=== PATIENT | female | born 1960 | race Caucasian/White ===

== ENCOUNTER 2017-01-14 07:44 | Day surgery (SDC) | payer OTHER ==
[~2017-01-14] VITALS: Ht 162.6 cm; Wt 84.4 kg
[~2017-01-14 07:44] MED LIST: CALC-72 PO; CHOL500050 PO; CYCL5TAB PO; CeFAZolin Inj 2 GM in IV Premix 1 EACH IV ONE; KETACONAZOLE CREAM TP; LEVO50TA6 PO; Lactated Ringer's 1,000 ML IV SCH; NPR500T PO
[2017-01-14] MEDS ORDERED: Ketamine 10 mg/mL 20 mL Inj ONE (07:45)
[2017-01-14] MEDS ORDERED: Lactated Ringer's 1,000 ML IV ONE (08:18)
[2017-01-14 08:27] VITALS: BP 105/57; PULSE 52; RESP 17; O2SAT 98
--- NOTE | 2017-01-14 10:50 | PCM.HPANE ---
Patient Data Surgeon Admitting Provider: Attending Provider:Raffi Olivarez MD Primary Care Physician:Angela Fountain MD Other Provider:Tricia Braggingham Anesthesia Reason for Visit Left Middle Finger Cyst Ht/WT & BMI Height (Feet): 5 Height (Inches): 4.00 Weight (Kilograms): 84.368 Body Mass Index 31.00 Allergies Coded Allergies: aspirin (Verified Adverse Reaction, Severe, VOMITING, 01/13/17) Past Anesthesia History Anesthesia History: Denies:: Anesthesia Reactions, Malignant Hyperthermia Diabetes History Hx Diabetes?: No MRSA MRSA: No (HAS BEEN EXPOSED, BUT TESTED NEG.) Medications Home Meds Incl Beta Jaye: No Reported Medications Cholecalciferol (Vitamin D3) (Vitamin D3)50,000 Unit [id number],000 Unit PO WEEKLY 01/13/17 Naproxen 500 Mg [id number] Mg PO BID PRN For Pain Ref 0 01/13/17 Levothyroxine 50 Mcg [id number] Mcg PO DAILY Ref 0 01/13/17 [Ketaconazole Cream] No Conflict Check1 Applic TP PRN 2% 01/13/17 Calcium Carbonate/Vitamin D3 (Calcium 500 + Vit D 200 Tablet)1 Each Tablet1 Each PO DAILY 01/13/17 Discontinued Reported Medications Cyclobenzaprine 5 Mg Tablet5 Mg PO TID PRN Spasm 01/13/17 IBUPROFEN-Expunged Drug, Do Not Renew! 200 Mg [id number] Mg PO PRN INSTRUCTED TO STOP 05/19/12 History History of ENT Problems?: Yes HEENT History: Positive for:: Sinus Problem (POST-NASAL DRIP) Hx of Heart Problems?: Yes Cardiovascular History: Positive for:: Heart Murmur (ECHO 05/2013 EF 55-60%) Hypertension (HYPERLIPIDEMIA) Hx of Respiratory Problem?: No Respiratory History: Denies:: Use of C-PAP Machine Hx Neurologic Problems?: Yes Neurological History: Positive for:: Headaches Hx of GI Problems?: No Hx of Problems?: No Female Hx: Denies:: Currently (S/P BTL) Skin History: Denies:: History Skin Disorders? Pressure Ulcers Hx Musculoskeletal Problems?: Yes Musculoskeletal History: Positive for:: Musculoskeletal Trauma (S/P RT FOOT GASTRICNEMIUS EQUINUS RPR) Osteoarthritis (LT HIP PAIN,ELBOW PAIN) Denies:: Back Injury (C/OF LOWER BACK PAIN) Hx of Psycho/Social Problems?: No Hx Surgeries?: Yes (BTL,RT FOOT GASTROCNEMIUS EQUINUS RPR) Hx Any Other Health Problems?: Yes Other History: Denies:: Cancer Endocrine Disease Hospitalization Thyroid Disease History Blood Transfusions: Denies:: Blood Transfusions Hx Diabetes: No Hx Alcohol Use: NoHx Substance Use: NoHave You Smoked inLast 12 mo: No Stop/Bang Treated for Sleep Apnea?: No Do You Have a CPAP Machine?: No S-Snoring: Do You Snore Loudly: No T-Tired: feel tired, fatigued: Yes O-Obsered: Observed not breath: No P-Blood Pressure: treated: No B- Body Mass Index > 35 kg/m2: No A- Age over 50: Yes N- Neck Large Circumference: No G- Gender Male: No ANGELICA Total Score: 2 ANGELICA Risk Assessment: Low Risk, <3 Yes Risk Assessment Category Category 1A: Patient has history of documented sleep apnea, and HAS NOT received any narcotic, sedative or anesthesia administration during this stay. Category 1B: Patient has history of documented sleep apnea, and HAS received any narcotic , sedative or anesthesia administration during this stay Category 2: Patient has SUSPECTED Obstructive Sleep Apnea, and HAS received any narcotic , sedative or anesthesia administration during this stay. Category 3: Patient has SUSPECTED Obstructive Sleep Apnea and HAS NOT received narcotic, sedative or anesthesia administration during this stay. Category 4: Outpatient in Procedural Areas with known sleep apnea or who screen positive for High Risk via the STOP/BANG questionnaire. Exam Exam Vital Signs Vital Signs Date Time Temp Pulse Resp B/P Pulse Ox O2 Delivery O2 Flow Rate FiO2 01/14/17 08:27 36.1 52 17 105/57 98 Room Air General Appearance: Oriented X3 HEENT/AIRWAY: MP 2 Lungs: Normal Air Movement Heart: Regular Rate/Rhythm Meds/Labs/Diagnostics Admission Meds Current Medications Lactated Ringer's (Lr) 1,000 ml @ ud STK-MED ONCE IV Last administered on t 08:18; Start 01/14/17 at 08:18; Stop 01/14/17 at 08:27; Status DC Plan Impression Patient chart reviewed, patient interviewed and anesthestic plan with risks, benefits, and alternatives discussed, and informed consent obtained. NPO Status: 01/13@2100 ASA Physical Status: ASA2 Mod Systemic Disease Anesthetic Plan: MAC Bene/Risks/Altern/Consents: Yes HP Complete Prior to Induction: Yes Chalino Eckert MD Jan 14, 2017 10:50
[2017-01-14] MEDS ORDERED: Phenylephrine 10,000 mCg/mL Inj IVPUSH PRN (11:55)
[2017-01-14] MEDS ORDERED: Dexamethasone 4 mg/mL Inj IVPUSH PRN (11:55)
[2017-01-14] MEDS ORDERED: fentaNYL-PF 50 mCg/mL 2 mL Inj IVPUSH PRN (11:55)
[2017-01-14] MEDS ORDERED: Ondansetron 2 mg/mL 2 mL Inj IVPUSH PRN (11:55)
[2017-01-14] MEDS ORDERED: EPHEDrine Sulfate 50 mg/mL Inj IVPUSH PRN (11:55)
[2017-01-14] MEDS ORDERED: HYDROmorphone 1 mg/mL Inj IVPUSH PRN (11:55)
[2017-01-14] MEDS ORDERED: Lactated Ringer's 1,000 ML IV SCH (11:55)
[2017-01-14] MEDS ORDERED: Lactated Ringer's 500 ML IV PRN (11:55)
[2017-01-14] MEDS ORDERED: MetoCLOpramide 5 mg/mL 2 mL Inj IVPUSH PRN (11:55)
[2017-01-14 11:57] VITALS: BP 103/60; PULSE 71; RESP 15; O2SAT 97
--- NOTE | 2017-01-14 12:32 | PCM.ANEP1 ---
Post Anesthesia Phase 1 PACU Phase 1 Assessment Vital Signs Vital Signs Date Time Temp Pulse Resp B/P Pulse Ox O2 Delivery O2 Flow Rate FiO2 01/14/17 11:57 36.1 71 15 103/60 97 Room Air 01/14/17 08:27 36.1 52 17 105/57 98 Room Air Anesthetic Administered: MAC Level of Alertness: Awake, talking Pain: No Nausea or Vomiting: No Oxygen Delivery: Room Air Lungs: Normal Air Movement Chalino Eckert MD Jan 14, 2017 12:32
--- NOTE | 2017-01-14 12:32 | PCM.ANEP2 ---
Post Anesthesia Evaluation ASA/CMS Post Anesthesia VS in Patient's Normal Range?: Yes Resp Stable; Airway Patent?: Yes CV Function & Hydration Stable: Yes Mental Status Recovered?: Yes Pain control Satisfactory?: Yes N/V Control Satisfactory?: Yes Chalino Eckert MD Jan 14, 2017 12:32
[2017-01-14 13:00] VITALS: BP 114/74; PULSE 56; RESP 17; O2SAT 100
--- NOTE | 2017-01-16 21:49 | OP ---
[address] [address] OPERATIVE REPORT PATIENT: FARSHAD ARANDA : 1960 MR#: [id number] ADMIT: 01/14/2017 JOB ID: [id number] DATE OF SURGERY: 01/14/2017 PREOPERATIVE DIAGNOSIS(ES): Left middle finger mucous cyst. POSTOPERATIVE DIAGNOSIS(ES): Left middle finger mucous cyst. PROCEDURE: 1. Excision of left middle finger mucous cyst. 2. Debridement of ulnar distal interphalangeal joint of the left middle finger. SURGEON: Raffi Olivarez MD. RECEIVING TANK OPERATOR: None. ANESTHESIA: MAC with local. COMPLICATIONS: None apparent. SPECIMEN: Left middle finger mucous cyst to Pathology. COMPLICATIONS: None apparent. ESTIMATED BLOOD LOSS: Minimal. INDICATIONS FOR PROCEDURE: This is a 56-year-old female patient with a mucous cyst of the left middle finger. The cyst has been symptomatic and draining. At this point, excision is indicated. PROCEDURES AND FINDINGS: The patient was identified in the preoperative area and surgical site was marked. It was noted that patient has an obvious mucous cyst just distal to the ulnar aspect of the distal interphalangeal joint. However, there is another component of the cyst that is more distal at the eponychial fold causing a nail groove. This area was marked. The patient was then taken back to the operating room and placed supine on the operating table. Appropriate time-outs were taken. MAC was induced smoothly. The patient was then prepped and draped in the usual sterile manner. Local anesthesia was then infiltrated into the left middle finger in a digital block fashion. The incision was then designed in the midline of the left middle finger over the distal interphalangeal joint. It then extends obliquely and distally toward the ulnar aspect of the finger over the proximal portion of the cyst. The incision was then extended back toward the midline to encompass the distal portion of the cyst. A finger tourniquet was then placed on the base of the middle finger after the finger has been exsanguinated. Incision was then made with a #15 blade down just through the skin. I then elevated the skin flap off the proximal portion of the cyst. The cyst was quite obvious. I was able to dissect the cyst free from the surrounding soft tissue. I then continued the dissection distally. There is some scar tissue in this area but there was no obvious cyst. Skin flap was continued to be elevated off of the scar tissue until the eponychial fold. I then dissected the scar tissue free from the surrounding structures. The scar tissue in the proximal cyst was then elevated off of the deep fascia. Ostium back to the joint capsule. It was then resected off of the joint capsule and passed off to Pathology as a specimen. Incision was then made with a #15 blade onto the dorsal ulnar capsule at the ulnar border of the extensor complex. Once this has been done, a cuff of the dorsal ulnar joint capsule was removed with a #15 blade. It was noted that patient has quite a bit of bone spurring mostly at the middle phalangeal head. These were removed with a small rongeur. The area was made smooth with a rongeur. Tourniquet was released and hemostasis was obtained with electrocautery. The incision was then reapproximated using several 5-0 Prolene horizontal mattress sutures. The patient tolerated the procedure well. Needle count, sponge count, and instrument counts were correct at the end of the procedure. The patient was transported to recovery in stable condition.
--- NOTE | 2017-01-19 08:20 | PATH ---
SURGICAL PATHOLOGY Attending Physician:Raffi Olivarez CASE STATUS: Signed Out PATIENT NAME: FARSHAD ARANDA PID: [id number] : 1960 DATE COLLECTED:01/14/2017 20:08 SPECIMEN: Skin, Cyst CLINICAL HISTORY: LEFT MIDDLE FINGER MUCOUS CYST 1). LEFT MIDDLE FINGER MUCOUS CYST FINAL DIAGNOSIS: Skin, Left Middle Finger: Benign mucous cyst. ICD10 L72.0 GROSS DESCRIPTION: The specimen is received in one formalin filled container labeled with the patient's name, sublabeled "left middle finger mucous cyst" and consists of a 0.6 x 0.4 x 0.3 CM light kelley santiago irregularly-shaped portion of tissue. The specimen is inked blue, trisected and entirely submitted in one cassette. 01/14/2017 [facility] ICD-9 CODES: CPT CODES: 1: 94507 Electronically Signed Out Loyd Steve MD [facility] Pathology [facility] [address] [facility] [place] [address] Technical component performed at [facility], [facility] [address], [place], [address]
== END 2017-01-14 23:59 | disposition home or self-care (01) ==
LOC: SAS 07:44
PROVIDERS: ATTEND Plastic Surgery
DX: M67.442 Ganglion, left hand (principal)